=== PATIENT | male | born 1950 | race Caucasian/White ===

== ENCOUNTER → 2017-12-14 | Outpatient (CLI) | payer MEDICARE | END | disposition home or self-care (01) | LOC: KCIC MRI 10:03 | DX: M48.02 Spinal stenosis, cervical region (principal); M50.23 Other cervical disc displacement, cervicothoracic region; G95.89 Other specified diseases of spinal cord | CPT/HCPCS: 72141 ==

== ENCOUNTER → 2018-01-10 | Outpatient (CLI) | payer MEDICARE ==
[2018-01-10] MEDS: GADOBUTROL 10 MMOL/10 ML VIAL IV (12:06)
== END | disposition home or self-care (01) ==
LOC: KCIC MRI 11:01
DX: M51.36 Other intervertebral disc degeneration, lumbar region (principal); M43.16 Spondylolisthesis, lumbar region; M48.061 Spinal stenosis, lumbar region without neurogenic claudication; I10 Essential (primary) hypertension; E78.5 Hyperlipidemia, unspecified; Z79.01 Long term (current) use of anticoagulants; Z87.891 Personal history of nicotine dependence
CPT/HCPCS: 72158; A9585

== ENCOUNTER → 2018-01-18 | Outpatient (CLI) | payer MEDICARE ==
[~2018-01-18] MED LIST: IOHEXOL 180 MG/ML 10 ML VIAL.; LIDOCAINE 1% PF 2 ML VIAL.; methylPREDNISolone ACETATE 40 MG/ML VIAL.; methylPREDNISolone ACETATE 80 MG/ML VIAL.
== END | disposition home or self-care (01) ==
LOC: PNCL 09:31
DX: M51.16 Intervertebral disc disorders with radiculopathy, lumbar region (principal); M48.061 Spinal stenosis, lumbar region without neurogenic claudication; M96.1 Postlaminectomy syndrome, not elsewhere classified; Z98.1 Arthrodesis status; I25.10 Atherosclerotic heart disease of native coronary artery without angina pectoris; Z95.5 Presence of coronary angioplasty implant and graft; E78.00 Pure hypercholesterolemia, unspecified; I10 Essential (primary) hypertension; J44.9 Chronic obstructive pulmonary disease, unspecified; M19.90 Unspecified osteoarthritis, unspecified site; F17.210 Nicotine dependence, cigarettes, uncomplicated; Z80.1 Family history of malignant neoplasm of trachea, bronchus and lung; Z82.49 Family history of ischemic heart disease and other diseases of the circulatory system; Z83.79 Family history of other diseases of the digestive system
CPT/HCPCS: 62323; J1030; J1040; Q9965

== ENCOUNTER → 2018-02-01 | Outpatient (CLI) | payer MEDICARE | END | disposition home or self-care (01) | LOC: PNCL 08:49 | DX: M54.16 Radiculopathy, lumbar region (principal); M48.061 Spinal stenosis, lumbar region without neurogenic claudication; I10 Essential (primary) hypertension; E78.5 Hyperlipidemia, unspecified; J44.9 Chronic obstructive pulmonary disease, unspecified; E78.00 Pure hypercholesterolemia, unspecified; F17.210 Nicotine dependence, cigarettes, uncomplicated; Z82.49 Family history of ischemic heart disease and other diseases of the circulatory system; Z83.79 Family history of other diseases of the digestive system; Z98.1 Arthrodesis status | CPT/HCPCS: G0463 ==

== ENCOUNTER → 2018-02-15 | Outpatient (CLI) | payer MEDICARE ==
[2014-10-23 10:36] VITALS: BP 100/61
[~2018-02-15] MED LIST changes: +ACET325T9 PO; +ASPI325T8 PO; +ATOR40TA59 PO; +CYCL10TA2 PO; +GLUC100018 PO; +HYDR-2762 PO; +IBUP200T44 PO; -IOHEXOL 180 MG/ML 10 ML VIAL.; +IOHEXOL 180 MG/ML 10 ML VIAL. ONE; -LIDOCAINE 1% PF 2 ML VIAL.; +LIDOCAINE 2% PF 2ML VIAL. ONE; +LISI10TA2 PO; +NICO-479 BC; +NICO1PAT2 TP; -methylPREDNISolone ACETATE 40 MG/ML VIAL.; +methylPREDNISolone ACETATE 40 MG/ML VIAL. ONE; -methylPREDNISolone ACETATE 80 MG/ML VIAL.; +methylPREDNISolone ACETATE 80 MG/ML VIAL. ONE
--- NOTE | 2018-02-15 16:15 | PAIN ---
DATE OF SERVICE: 02/15/2018 DIAGNOSES: Lumbar radiculopathy with lumbar spinal stenosis. HISTORY OF PRESENT ILLNESS: The patient is a 67-year-old male who returns for followup status post lumbar epidural steroid injection x 1 on 01/18/2018. The patient did very well with the first injection by 95% improvement. Pain has been returning now, but only slightly, but is becoming more noticeable in the legs, especially on the right side. The patient reports in the right gluteus, right posterior thigh as well as the posterior calf with some cramping in the legs bilaterally. The patient reports it is a 6 on a scale 10 at its worst, 4 on average, 2 at its least and is a 4 today. The patient reports it is cramping, aching, dull, radiating in the low back and right lower extremity, most significantly. The patient reports cramps more noticeable. The patient reports it awakens him from sleep about every 5-6 hours, otherwise he is doing very well, has been increasing his activity at work household activities and traveling with greater ease and comfort and doing very well for the past month or so. No new motor or sensory deficits, no bowel or bladder incontinence or other complaints. PHYSICAL EXAMINATION: VITAL SIGNS: The patient's blood pressure is 117/72, pulse 61, respirations 16, temperature 98.0 degrees Fahrenheit. Height 5 feet 10 inches, weight is 210 pounds. GENERAL: The patient is awake, alert, oriented, appropriate, very pleasant demeanor. HEENT: Head shows normocephalic, atraumatic. Extraocular movements are intact and symmetrical. The patient wears eye glasses. Oral cavity: Mucous membranes moist and pink. Dentition is intact. NECK: Shows anterior throat supple without palpable lymphadenopathy noted. Swallow reflex is symmetrical. CHEST: Shows normal with inspection. Breath sounds are clear to auscultation bilaterally. HEART: Shows S1, S2 clear. No murmurs auscultated. ABDOMEN: Soft, nontender, nondistended. No palpable organomegaly. No rebound or guarding demonstrated. BACK: Shows spine grossly in the midline. No radiation. No tenderness with rotational motion, which is intact. LOWER EXTREMITIES: Show deep tendon reflexes 1+ in the patellar and tendo calcaneus tendons. Motor exam is strong with 5/5 dorsiflexion, extension, quadriceps and hamstring flexion. Peripheral pulses are 1+ posterior tibial. No peripheral edema is noted. Options were discussed with the patient. The patient's old chart was reviewed as his current medication regimen updated. Current review of systems updated today as well. We will proceed with a second in the series of lumbar epidural steroid injection today with fluoroscopic guidance. Risks were again discussed including, but not limited to bleeding, infection, possibility of epidural hematoma, subsequent neurologic compromise, dural puncture, headaches, spinal cord and/or nerve damage, side effects of steroid medication and poor results regarding pain control. The patient understands and wished to proceed. The patient will return to clinic in approximately 2 weeks for followup, was counseled on return appointment, activity level and side effects to be aware of. DIAGNOSES: Lumbar radiculopathy with lumbar spinal stenosis. PROCEDURE: Lumbar epidural steroid injection, translaminar approach at the L5-S1 level using C-arm fluoroscopic guidance under sterile prep and drape using local anesthetic. MEDICATION INJECTED: Depo-Medrol 120 mg, plus 10 mL of preservative-free normal saline and 2 mL of Isovue for contrast. CONDITION AT DISCHARGE: Stable. The patient tolerated procedure well, had no complications. ADELA MEEKS MD DR: DELIA/darell JOB#: [id number] / [id number]
== END | disposition home or self-care (01) ==
LOC: PNCL 08:58
PROVIDERS: ATTEND Anesthesiology
DX: M48.061 Spinal stenosis, lumbar region without neurogenic claudication (principal); I25.10 Atherosclerotic heart disease of native coronary artery without angina pectoris; Z95.5 Presence of coronary angioplasty implant and graft; I10 Essential (primary) hypertension; E78.00 Pure hypercholesterolemia, unspecified; J44.9 Chronic obstructive pulmonary disease, unspecified; M19.90 Unspecified osteoarthritis, unspecified site; Z87.891 Personal history of nicotine dependence; Z87.19 Personal history of other diseases of the digestive system; Z82.49 Family history of ischemic heart disease and other diseases of the circulatory system; Z80.1 Family history of malignant neoplasm of trachea, bronchus and lung
CPT/HCPCS: 62323; J1030; J1040; J2001; Q9965

== ENCOUNTER → 2018-10-16 | Outpatient (CLI) | payer MEDICARE ==
[2014-10-23 10:36] VITALS: BP 100/61
[~2018-10-16] MED LIST changes: -HYDR-2762 PO; +HYDR-2765 PO; -IOHEXOL 180 MG/ML 10 ML VIAL. ONE; -LIDOCAINE 2% PF 2ML VIAL. ONE; -methylPREDNISolone ACETATE 40 MG/ML VIAL. ONE; -methylPREDNISolone ACETATE 80 MG/ML VIAL. ONE
--- NOTE | 2018-10-17 12:06 | KCIC ---
3 view study of both hands Clinical indications: Polyarthralgia. Left hand: No acute fracture or dislocation or lytic process is seen. Moderate primary degenerative osteoarthritis and spurring of the interphalangeal joints is seen. Moderate primary degenerative osteoarthritis of the first metacarpal phalangeal joint is seen. There is mild primary degenerative osteoarthritis of the second and third metacarpal phalangeal joints. There is severe primary degenerative osteoarthritis with loss of joint space of the first carpal metacarpal joint. Mild primary degenerative osteoarthritis of the scaphoid trapezium joint is seen. No erosive arthropathy is evident. Right hand: No acute fracture or dislocation or lytic process is seen. There is moderate primary degenerative osteoarthritis and spurring of the interphalangeal joints. There is mild primary degenerative osteoarthritis of the first through fifth metacarpal phalangeal joints. There is severe primary degenerative osteoarthritis of the first carpal metacarpal joint with loss of joint space. There is mild primary degenerative osteoarthritis of the scaphoid trapezium joint and distal radial ulnar joint. No erosive arthropathy is evident. IMPRESSION: Bilateral primary degenerative osteoarthritis involving multiple joints but most severely involving the first carpal metacarpal joint of both wrists. Electronically signed by: Flaquito Pena MD (10/17/2018 12:03 PM) [id number]
== END | disposition home or self-care (01) ==
LOC: KCIC 10:18
PROVIDERS: ATTEND Internal Medicine Rheumatology
DX: M19.042 Primary osteoarthritis, left hand (principal); M19.041 Primary osteoarthritis, right hand
CPT/HCPCS: 73130

== ENCOUNTER → 2019-01-17 | Outpatient (CLI) | payer MEDICARE ==
[2014-10-23 10:36] VITALS: BP 100/61
--- NOTE | 2019-01-17 11:24 | KCIC ---
CHEST PA LATERAL History: Severe worsening wheezing. Comparison: July 14, 2015 Findings: No consolidation or pleural effusion. Normal heart size. Mild multilevel thoracic spondylosis. Impression: 1. No acute cardiopulmonary process. Electronically signed by: Beny Landeros DO (01/17/2019 11:21 AM) [id number]
== END | disposition home or self-care (01) ==
LOC: KCIC 10:57
PROVIDERS: ATTEND Family Medicine
DX: R06.2 Wheezing (principal); M47.814 Spondylosis without myelopathy or radiculopathy, thoracic region
CPT/HCPCS: 71046